=== PATIENT | female | born 1945 | race Caucasian/White ===

== ENCOUNTER 2019-06-21 10:45 | Day surgery (SDC) | payer MEDICARE, OTHER ==
[~2019-06-21 10:45] MED LIST: Lactated Ringers 1,000 ML IV ONE; Sensorcaine 0.25% 10 ML ONE
[2019-06-21] MEDS ORDERED: Lactated Ringers 1,000 ML IV ONE (11:08)
[2019-06-21] MEDS ORDERED: Lactated Ringers 1,000 ML IV SCH (11:30)
[2019-06-21] MEDS ORDERED: Levofloxacin 500MG/100ML D5W 500 MG/100 ML BAG IV SCH (13:15)
[2019-06-21] MEDS ORDERED: Quelicin Fliptop 200 MG/10 ML ONE (13:36)
[2019-06-21] MEDS ORDERED: DIPRIVAN 200 MG/20 ML IV ONE (13:36)
[2019-06-21] MEDS ORDERED: Versed 2 MG/2 ML Injection ONE (13:37)
[2019-06-21] MEDS ORDERED: SUBLIMAZE 100 MCG/2 ML ONE ×2 (13:37→14:52)
[2019-06-21] MEDS ORDERED: Zemuron 100 MG/10 ML ONE (13:53)
[2019-06-21] MEDS ORDERED: BRIDION 200MG/2ML IV ONE (14:27)
[2019-06-21] MEDS ORDERED: APRESOLINE 20 MG/ML INJ ONE (15:14)
[2019-06-21 15:59] VITALS: BP 147/74; PULSE 66; O2SAT 94
--- NOTE | 2019-06-24 10:53 | OP ---
SURGERY DATE: 06/21/19 SURGERY TIME: 1334 PREOPERATIVE DIAGNOSIS: 1. CHRONIC LEFT PERINEAL CYSTIC MASS. 2. NEW RIGHT LABIAL MASS. POSTOPERATIVE DIAGNOSIS: 1. EXCISION RIGHT LABIAL CYST 1 X 0.5 CM. 2. EXCISION LEFT PERINEAL CYSTIC MASS 5 X 2.5 X 4 CM. PROCEDURE: 1. Excision right labial mass approximately 1 X 0.5 cm. 2. Excisional debridement of chronically infected left perineal cystic mass 5 X 2.5 X 4 cm. SURGEON: Silvia Shields M.D. ANESTHESIA: General. ESTIMATED BLOOD LOSS: Approximately 25 cc. COMPLICATIONS: None. SPECIMENS: 1. Left perineal mass portion for culture and sensitivity and portion for pathology. 2. Right labial mass. PROCEDURE DETAILS: This is a 74 y/o female who presents for excision of left chronic perineal cystic mass and a new right labial lesion. She has chronically gotten small lesions in the labial and perineal area. However, her left perineal region developed a cystic mass which was removed and despite leaving this open to heal, she has a further cystic growth and chronically appearing infection here. Risks, benefits, and alternatives regarding removing this and then possibly removing the newer lesion on the right have been discussed with the patient. She understands, agrees, and wants to proceed and was able to be taken back to surgery after reviewing H&P and consent with her. She was prepped and draped in the usual sterile fashion in lithotomy after general anesthesia was done and then we did her complete time-out. We first turned our attention to the left cystic perineal lesion. This appears to be chronically inflamed, possibly infected. We made an elliptical incision and then had to slightly widen this towards the labia to complete encompass this lesion. This did track about 3.5-4 cm deep and the wound is approximately 5 X 2.5 cm. This was sharply excised with a Bovie cautery on cut and then on the coag function to encompass skin and subcutaneous tissue and all the devitalized subcutaneous tissue. I resected the entire lesion contiguously down to the bed down to healthy tissue. We then irrigated this, ensured hemostasis. I placed one 3-0 Vicryl suture at the base where she had some bleeding and with this suture this stopped and then after thorough irrigation and ensuring hemostasis, we packed this with Iodoform gauze and a sterile dressing. She does have a new lesion on her right labia. It is smaller and appears to be more sebaceous in nature and this was taken with an elliptical manner as well using the Bovie cautery sharply on cut and then coag in the subcutaneous tissue to completely resect this lesion in entirety. We then irrigated this and also packed this with Iodoform and sterile dressing. Due to the dirty nature of these wounds, we left these open to heal. The patient tolerated the procedure very well. There were no immediate complications. She is going to take some antibiotics, PO pain medications as needed, and she will have daily dressing changes. She is going to follow-up with me as an outpatient and we will discuss her final results.
== END 2019-06-21 16:18 | disposition home or self-care (01) ==
LOC: SDC 10:45
PROVIDERS: ATTEND Surgery
DX: N90.7 Vulvar cyst (principal); D36.7 Benign neoplasm of other specified sites
CPT/HCPCS: 88304; 99100; J0330; J0360; J2250; J2704; J3010

== ENCOUNTER 2019-10-08 17:36 | Emergency (ER) | payer MEDICARE, OTHER ==
[2019-10-08 19:22] LABS: Group A Strep NEGATIVE (NEGATIVE); INFLUENZA A NEGATIVE (NEGATIVE); INFLUENZA B NEGATIVE (NEGATIVE); RESPIRATORY SYNCTIAL VIRUS NEGATIVE (Negative)
--- NOTE | 2019-10-08 19:30 | ERPHSYRPT ---
- History of Present Illness Time Seen by Provider: 10/08/19 19:28 Source: patient, family Exam Limitations: no limitations Patient Subjective Stated Complaint: Pt states "I think I have the bug. My son and daughter in law have the flu and I have been coughing, my throat hurts." Triage Nursing Assessment: Pt presented alert and oriented X 3, skin pwd. Pt ambualates with an upright steady gait, able to speak in clear full sentences. Pt in no apparent respiratory distress. Physician History: Pt states "I think I have the bug. My son and daughter in law have the flu and I have been coughing, my throat hurts." Timing/Duration: yesterday Fever Severity: moderate Associated Symptoms: cough, sore throat Allergies/Adverse Reactions: clams Allergy (Verified 06/30/16 00:02) codeine [Codeine] Allergy (Verified 06/29/16 17:47) penicillin G Allergy (Verified 06/29/16 17:47) Home Medications: Allopurinol 300 mg [Zyloprim 300 mg] 300 mg PO DAILY 10/07/13 [History] Carvedilol 3.125 mg [Coreg 3.125 MG] 3.125 mg PO BID 10/07/13 [History] Nitroglycerin 0.4 mg (Ed) [Nitrostat 0.4 MG (ED)] 0.4 mg SL UD PRN [History] Potassium Chloride 2 tab PO BID 10/07/13 [History] Ergocalciferol (Vitamin D2) [Vitamin D] 50,000 unit PO UD 01/19/18 [History] Hydralazine HCl 10 mg PO TID 01/19/18 [History] Magnesium Oxide 400 mg [Mag-Ox 400] 400 mg PO DAILY 01/19/18 [History] Spironolactone 25 mg [Aldactone 25 MG] 25 mg PO DAILY 01/19/18 [History] Torsemide 20 mg [Demadex 20 mg] 2 tab PO BID 01/19/18 [History] Calcitriol [Rocaltrol] 0.5 mcg PO UD 06/21/19 [History] Hx Tetanus, Diphtheria Vaccination/Date Given: No Hx Influenza Vaccination/Date Given: Yes Hx Pneumococcal Vaccination/Date Given: No Immunizations Up to Date: Yes - Review of Systems Constitutional: Fever, Chills Eyes: No Symptoms Ears, Nose, & Throat: No Symptoms Respiratory: Cough, No Dyspnea Cardiac: No Chest Pain, No Edema, No Syncope Abdominal/Gastrointestinal: No Abdominal Pain, No Nausea, No Vomiting, No Diarrhea Genitourinary Symptoms: No Dysuria Musculoskeletal: No Back Pain, No Neck Pain Skin: No Rash Neurological: No Dizziness, No Focal Weakness, No Sensory Changes Psychological: No Symptoms Endocrine: No Symptoms All Other Systems: Reviewed and Negative - Past Medical History Pertinent Past Medical History: Yes Neurological History: No Pertinent History ENT History: Cataracts Cardiac History: Arrhythmia, Hypertension Respiratory History: No Pertinent History Endocrine Medical History: Other Musculoskeletal History: No Pertinent History GI Medical History: Diverticulitis, Hernia, Other History: Renal Disease Psycho-Social History: No Pertinent History Female Reproductive Disorders: Endometriosis Other Medical History: colon resection in 2006 - parts of colon . hyperparathyroidism. hx kidney failure stage 3 - Past Surgical History Past Surgical History: Yes Neuro Surgical History: No Pertinent History Cardiac: Cardiac Catheterization Respiratory: No Pertinent History Gastrointestinal: Appendectomy, Cholecystectomy, Colon Resection, Hernia Repair Genitourinary: No Pertinent History Musculoskeletal: No Pertinent History Female Surgical History: Hysterectomy - Social History Smoking Status: Never smoker Exposure to second hand smoke: No Drug Use: none Patient Lives Alone: No - Female History Hx Now: No - Nursing Vital Signs Nursing Vital Signs: Initial Vital Signs Temperature 99.7 F 10/08/19 18:07 Pulse Rate 77 10/08/19 18:07 Respiratory Rate 20 10/08/19 18:07 Blood Pressure 179/70 10/08/19 18:07 O2 Sat by Pulse Oximetry 98 10/08/19 18:07 Pain Scale Pain Intensity 2 - Physical Exam General Appearance: no apparent distress, alert Eye Exam: PERRL/EOMI ENT Exam: normal ENT inspection, No pharyngeal erythema, No tonsillar exudate Neck Exam: supple, full range of motion, No meningismus Respiratory Exam: normal breath sounds, lungs clear, no respiratory distress Cardiovascular/Chest Exam: normal heart sounds, regular rate/rhythm, No murmur, No edema Gastrointestinal/Abdominal Exam: soft, non tender, no distention Extremity Exam: non-tender, normal range of motion, normal inspection, normal capillary refill Neurologic Exam: alert, oriented x 3, cooperative, 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, normal mood/affect, sensation nml, No motor deficits Skin Exam: normal color, warm, dry, No rash SpO2: 96 Lab/Rad Data: Laboratory Results 10/08/19 Range/Units 18:30 Influenza Type A Ag NEGATIVE (NEGATIVE) Influenza Type B Ag NEGATIVE (NEGATIVE) RSV (PCR) NEGATIVE (Negative) Group A Strep Antibody NEGATIVE (NEGATIVE) - Progress Progress: improved Counseled pt/family regarding: lab results, diagnosis, need for follow-up - Departure Departure Disposition: Home Clinical Impression: Influenza A virus not detected, Cough Condition: Stable Critical Care Time: No Referrals: BRIGETTE HERNANDEZ [Primary Care Provider] - Instructions: Fever, Adult (DC), Flu, Adult (DC) Additional Instructions: Discharge/Care Plan JANA SUE was seen on 10/08/19 in the Emergency Room. The patient was counseled regarding Diagnosis,Lab results, Imaging studies, need for follow up and when to return to the Emergency Room. Prescriptions given: Discharge Note I have spoken with the patient and/or caregivers. I have explained the patient' s condition, diagnosis and treatment plan based on the information available to me at this time. I have answered the patient's and/or caregiver's questions and addressed any concerns. The patient and/or caregivers have as good understanding of the patient's diagnosis, condition and treatment plan as can be expected at this point. The vital signs have been stable. The patient's condition is stable and appropriate for discharge from the emergency department. The patient will pursue further outpatient evaluation with the primary care physician or other designated or consulting physician as outlined in the discharge instructions. The patient and/or caregivers are agreeable to this plan of care and follow-up instructions have been explained in detail. The patient and/or caregivers have received these instruction. The patient/and or caregivers are aware that any significant change in condition or worsening of symptoms should prompt an immediate return to this or the closest emergency department or call 911. Prescriptions: Guaifenesin/Codeine Phos [Cheratussin AC Syrup] 5 ml PO QID #150 liquid Oseltamivir 75 mg [Tamiflu 75MG Capsule] 75 mg PO BID #10 cap
[2019-10-08 19:48] VITALS: BP 184/66; PULSE 77; O2SAT 97
== END 2019-10-08 19:46 | disposition home or self-care (01) ==
LOC: ED 17:36
DX: R05 Cough (principal); Z79.899 Other long term (current) drug therapy
CPT/HCPCS: 87631; 87651; 99283

== ENCOUNTER 2020-01-05 21:48 | Observation (INO) | payer MEDICARE, OTHER ==
--- NOTE | 2020-01-05 22:01 | ERPHSYRPT ---
- History of Present Illness Time Seen by Provider: 01/05/20 22:01 Historian: patient Exam Limitations: no limitations Physician History: This is a 74-year-old obese white female who has a history of recurrent diverticulitis in the past including bowel resections for it, presents with central abdominal pain that occurred this evening. Patient denies diarrhea. She denies fever. She denies nausea and vomiting. Patient was recently diagnosed with breast cancer and has undergone PET scan. Timing/Duration: today Activities at Onset: none Quality: cramping Abdominal Pain Onset Location: periumbilical Pain Radiation: no radiation Severity of Pain-Max: mild Severity of Pain-Current: mild Modifying Factors: Improves With: nothing Associated Symptoms: No fever/chills, No nausea, No vomiting Previous symptoms: same symptoms as today Allergies/Adverse Reactions: clams Allergy (Verified 01/05/20 22:20) codeine [Codeine] Allergy (Verified 01/05/20 22:20) penicillin G Allergy (Verified 01/05/20 22:20) Home Medications: Allopurinol 300 mg [Zyloprim 300 mg] 300 mg PO DAILY 10/07/13 [History] Carvedilol 3.125 mg [Coreg 3.125 MG] 3.125 mg PO BID 10/07/13 [History] Potassium Chloride 2 tab PO BID 10/07/13 [History] Ergocalciferol (Vitamin D2) [Vitamin D] 50,000 unit PO UD 01/19/18 [History] Hydralazine HCl 10 mg PO TID 01/19/18 [History] Magnesium Oxide 400 mg [Mag-Ox 400] 400 mg PO DAILY 01/19/18 [History] Spironolactone 25 mg [Aldactone 25 MG] 25 mg PO DAILY 01/19/18 [History] Torsemide 20 mg [Demadex 20 mg] 2 tab PO BID 01/19/18 [History] Calcitriol [Rocaltrol] 0.5 mcg PO UD 06/21/19 [History] Ascorbic Acid 500 mg [Vitamin C 500 MG] 1,000 mg PO DAILY 01/05/20 [ History] Simvastatin 20 mg PO DAILY 01/05/20 [History] Zinc 50 mg PO DAILY 01/05/20 [History] Hx Tetanus, Diphtheria Vaccination/Date Given: No Hx Influenza Vaccination/Date Given: Yes Hx Pneumococcal Vaccination/Date Given: No Travel Risk - International Travel Have you traveled outside of the country in past 3 weeks: No Have you or anyone close to you been diagnosed with or: No Do your reside in a community with a known COVID-19 case?: No - Coronavirus Screening Has patient experienced Coronavirus symptoms: No - Review of Systems Constitutional: No Symptoms Eyes: No Symptoms Ears, Nose, & Throat: No Symptoms Respiratory: No Symptoms Cardiac: No Symptoms Abdominal/Gastrointestinal: Abdominal Pain, No Vomiting, No Diarrhea, No Constipation Genitourinary Symptoms: No Symptoms Musculoskeletal: No Symptoms Skin: No Symptoms Neurological: No Symptoms Psychological: No Symptoms Endocrine: No Symptoms Hematologic/Lymphatic: No Symptoms Immunological/Allergic: No Symptoms All Other Systems: Reviewed and Negative - Past Medical History Pertinent Past Medical History: Yes Neurological History: No Pertinent History ENT History: Cataracts Cardiac History: Arrhythmia, Hypertension Respiratory History: No Pertinent History Endocrine Medical History: Other Musculoskeletal History: No Pertinent History GI Medical History: Diverticulitis, Hernia, Other History: Renal Disease Psycho-Social History: No Pertinent History Female Reproductive Disorders: Endometriosis Other Medical History: colon resection in 2006 - parts of colon . hyperparathyroidism. hx kidney failure stage 3 - Past Surgical History Past Surgical History: Yes Neuro Surgical History: No Pertinent History Cardiac: Cardiac Catheterization Respiratory: No Pertinent History Gastrointestinal: Appendectomy, Cholecystectomy, Colon Resection, Hernia Repair Genitourinary: No Pertinent History Musculoskeletal: No Pertinent History Female Surgical History: Hysterectomy - Social History Smoking Status: Never smoker Exposure to second hand smoke: No Drug Use: none Patient Lives Alone: No - Nursing Vital Signs Nursing Vital Signs: Initial Vital Signs Temperature 98.5 F 01/05/20 21:54 Pulse Rate 61 01/05/20 21:54 Respiratory Rate 24 01/05/20 21:54 Blood Pressure 151/70 01/05/20 21:54 Pain Scale Pain Intensity 8 - Physical Exam General Appearance: no apparent distress, alert, anxiety Eye Exam: PERRL/EOMI, eyes nml inspection, EOM palsy/anisocoria Ears, Nose, Throat Exam: moist mucous membranes Neck Exam: normal inspection, non-tender, supple, full range of motion Respiratory Exam: normal breath sounds, lungs clear, airway intact, No chest tenderness, No respiratory distress Cardiovascular Exam: regular rate/rhythm, normal heart sounds, normal peripheral pulses Gastrointestinal/Abdomen Exam: soft, normal bowel sounds, tenderness (Mild periumbilical), guarding (Mild), No rebound Pelvic Exam: not done Rectal Exam: not done Back Exam: normal inspection, normal range of motion, No CVA tenderness, No vertebral tenderness Extremity Exam: normal inspection, normal range of motion, pelvis stable Neurologic Exam: alert, oriented x 3, cooperative, 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 Skin Exam: normal color, warm, dry Lymphatic Exam: No adenopathy SpO2 Interpretation: normal O2 Delivery: Room Air - Course Nursing assessment & vital signs reviewed: Yes Ordered Tests: Active Orders 24 hr Category Date Time Status IV Insertion STAT Care 01/05/20 22:17 Active ABDOMEN AND PELVIS W/0 CONTRAS [CT] Stat Exams 01/05/20 22:12 Taken AMYLASE Stat Lab 01/05/20 22:30 Completed CBC W DIFF Stat Lab 01/05/20 22:30 Completed CMP Stat Lab 01/05/20 22:30 Completed CULTURE,URINE Stat Lab 01/05/20 22:30 Received LIPASE Stat Lab 01/05/20 22:30 Completed Lactic Acid Stat Lab 01/05/20 22:30 Completed UA W/RFX UR CULTURE Stat Lab 01/05/20 22:30 Completed Transfer Order Routine Transfer 01/05/20 Ordered Medication Summary Generic Name Dose Route Start Last Admin Trade Name Freq PRN Reason Stop Dose Admin Levofloxacin/Dextrose 500 mg in 100 mls @ 100 mls/hr 01/05/20 23:00 01/05/20 23:11 Levofloxacin 500mg/100ml D5w IV 01/05/20 23:59 100 mls/hr STAT STA 100 mls/hr Administration Discontinued Medications Generic Name Dose Route Start Last Admin Trade Name Freq PRN Reason Stop Dose Admin Hydromorphone HCl 0.5 mg 01/05/20 22:27 01/05/20 22:29 Hydromorphone 1 Mg/Ml Ampule IV 01/05/20 22:28 0.5 mg STAT ONE Administration Hydromorphone HCl Confirm 01/05/20 22:28 Hydromorphone 1 Mg/Ml Ampule Administered 01/05/20 22:29 Dose 1 mg .ROUTE .STK-MED ONE Sodium Chloride 1,000 mls @ 999 mls/hr 01/05/20 22:13 01/05/20 23:36 Sodium Chloride 0.9% 1000 Ml IV 01/05/20 23:13 Infused .Q1H1M STA Infusion Sodium Chloride Confirm 01/05/20 22:18 Sodium Chloride 0.9% 1000 Ml Administered 01/05/20 22:19 Dose 1,000 mls @ ud .ROUTE .STK-MED ONE Levofloxacin/Dextrose Confirm 01/05/20 23:09 Levofloxacin 500mg/100ml D5w Administered 01/05/20 23:10 Dose 500 mg in 100 mls @ ud IV .STK-MED ONE Ondansetron HCl 4 mg 01/05/20 22:27 01/05/20 22:29 Zofran 4 Mg/2 Ml Vial IV 01/05/20 22:28 4 mg STAT ONE Administration Ondansetron HCl Confirm 01/05/20 22:28 Zofran 4 Mg/2 Ml Vial Administered 01/05/20 22:29 Dose 4 mg .ROUTE .STK-MED ONE Promethazine HCl 12.5 mg 01/05/20 23:01 01/05/20 23:11 Phenergan 25 Mg Inj IM 01/05/20 23:02 12.5 mg STAT ONE Administration Promethazine HCl Confirm 01/05/20 23:09 Phenergan 25 Mg Inj Administered 01/05/20 23:10 Dose 25 mg .ROUTE .STK-MED ONE Lab/Rad Data: Laboratory Result Diagrams 01/05/20 22:30 01/05/20 22:30 Laboratory Results 01/05/20 01/05/20 01/05/20 Range/Units 22:30 22:30 22:30 WBC (4.0-10.5) K/mm3 RBC (4.1-5.4) M/mm3 Hgb (12.0-16.0) gm/dl Hct (35-47) % MCV (78-100) fl MCH (26-32) pg MCHC (32-36) g/dl RDW (11.5-14.0) % Plt Count (150-450) K/mm3 MPV (7.5-11.0) fl Gran % (36.0-66.0) % Eos # (Auto) (0-0.5) Absolute Lymphs (auto) (1.0-4.6) Absolute Monos (auto) (0.0-1.3) Lymphocytes % (24.0-44.0) % Monocytes % (0.0-12.0) % Eosinophils % (0.00-5.0) % Basophils % (0.0-0.4) % Absolute Granulocytes (1.4-6.9) Basophils # (0-0.4) Sodium 140 (137-145) mmol/L Potassium 4.4 (3.5-5.1) mmol/L Chloride 102 (98-107) mmol/L Carbon Dioxide 29 (22-30) mmol/L Anion Gap 14.0 (5-15) MEQ/L BUN 35 H (7-17) mg/dL Creatinine 1.68 H (0.52-1.04) mg/dL Estimated GFR 31.8 ML/MIN Glucose 129 H (74-106) mg/dL Lactic Acid 2.0 (0.4-2.0) Calcium 9.9 (8.4-10.2) mg/dL Total Bilirubin 0.70 (0.2-1.3) mg/dL AST 34 (14-36) U/L ALT 18 (0-35) U/L Alkaline Phosphatase 124 (38-126) U/L Serum Total Protein 7.9 (6.3-8.2) g/dL Albumin 4.4 (3.5-5.0) g/dL Amylase 95 (30-110) U/L Lipase 288 (23-300) U/L Urine Color YELLOW (YELLOW) Urine Appearance CLEAR (CLEAR) Urine pH 6.0 (5-6) Ur Specific [place] 1.010 (1.005-1.025) Urine Protein NEGATIVE (Negative) Urine Ketones NEGATIVE (NEGATIVE) Urine Blood NEGATIVE (0-5) Alok/ul Urine Nitrite NEGATIVE (NEGATIVE) Urine Bilirubin NEGATIVE (NEGATIVE) Urine Urobilinogen NEGATIVE (0-1) mg/dL Ur Leukocyte Esterase MODERATE (NEGATIVE) Urine WBC (Auto) 26-50 (0-5) /HPF Urine RBC (Auto) 0-2 (0-2) /HPF U Hyaline Cast (Auto) 6-10 (0-2) /LPF U Epithel Cells (Auto) NONE (FEW) /HPF Urine Bacteria (Auto) RARE (NEGATIVE) /HPF Other Casts (Auto) NEGATIVE (NEGATIVE) /LPF Urine Culture Reflexed YES (NO) Urine Glucose NEGATIVE (NEGATIVE) mg/dL 01/05/20 Range/Units 22:30 WBC 9.1 (4.0-10.5) K/mm3 RBC 3.88 L (4.1-5.4) M/mm3 Hgb 12.8 (12.0-16.0) gm/dl Hct 39.7 (35-47) % MCV 102.3 H (78-100) fl MCH 33.0 H (26-32) pg MCHC 32.2 (32-36) g/dl RDW 14.4 H (11.5-14.0) % Plt Count 139 L (150-450) K/mm3 MPV 10.7 (7.5-11.0) fl Gran % 77.3 H (36.0-66.0) % Eos # (Auto) 0.10 (0-0.5) Absolute Lymphs (auto) 1.10 (1.0-4.6) Absolute Monos (auto) 0.79 (0.0-1.3) Lymphocytes % 12.2 L (24.0-44.0) % Monocytes % 8.7 (0.0-12.0) % Eosinophils % 1.1 (0.00-5.0) % Basophils % 0.7 (0.0-0.4) % Absolute Granulocytes 7.00 H (1.4-6.9) Basophils # 0.06 (0-0.4) Sodium (137-145) mmol/L Potassium (3.5-5.1) mmol/L Chloride (98-107) mmol/L Carbon Dioxide (22-30) mmol/L Anion Gap (5-15) MEQ/L BUN (7-17) mg/dL Creatinine (0.52-1.04) mg/dL Estimated GFR ML/MIN Glucose (74-106) mg/dL Lactic Acid (0.4-2.0) Calcium (8.4-10.2) mg/dL Total Bilirubin (0.2-1.3) mg/dL AST (14-36) U/L ALT (0-35) U/L Alkaline Phosphatase (38-126) U/L Serum Total Protein (6.3-8.2) g/dL Albumin (3.5-5.0) g/dL Amylase (30-110) U/L Lipase (23-300) U/L Urine Color (YELLOW) Urine Appearance (CLEAR) Urine pH (5-6) Ur Specific [place] (1.005-1.025) Urine Protein (Negative) Urine Ketones (NEGATIVE) Urine Blood (0-5) Alok/ul Urine Nitrite (NEGATIVE) Urine Bilirubin (NEGATIVE) Urine Urobilinogen (0-1) mg/dL Ur Leukocyte Esterase (NEGATIVE) Urine WBC (Auto) (0-5) /HPF Urine RBC (Auto) (0-2) /HPF U Hyaline Cast (Auto) (0-2) /LPF U Epithel Cells (Auto) (FEW) /HPF Urine Bacteria (Auto) (NEGATIVE) /HPF Other Casts (Auto) (NEGATIVE) /LPF Urine Culture Reflexed (NO) Urine Glucose (NEGATIVE) mg/dL - Progress Progress: improved, pain not gone completely, re-examined Progress Note: 01/05/20 23:46 CAT scan of the abdomen and pelvis reveals small bowel obstruction. There is diverticulosis without evidence of diverticulitis. 01/05/20 23:[address] Teja Eason and I reviewed the patient's history, condition, laboratory and CAT scan results with him. He agrees with placement in observation with IV antibiotics, IV fluids and antiemetics. Discussed with : Donna Counseled pt/family regarding: lab results, diagnosis, rad results - Departure Departure Disposition: Home Clinical Impression: Small bowel obstruction, UTI (urinary tract infection) Condition: Stable Critical Care Time: No Referrals: BRIGETTE HERNANDEZ [Primary Care Provider] -
[2020-01-05] MEDS ORDERED: Sodium Chloride 0.9% 1000 ML 1,000 ML IV STA (22:13)
[2020-01-05] MEDS ORDERED: Sodium Chloride 0.9% 1000 ML 1,000 ML ONE (22:18)
[2020-01-05] MEDS ORDERED: Hydromorphone 1 mg/ml Ampule IV ONE (22:27)
[2020-01-05] MEDS ORDERED: Zofran 4 MG/2 ML VIAL IV ONE (22:27)
[2020-01-05] MEDS ORDERED: Hydromorphone 1 mg/ml Ampule ONE (22:28)
[2020-01-05] MEDS ORDERED: Zofran 4 MG/2 ML VIAL ONE (22:28)
[2020-01-05 22:33] LABS: BASOPHIL % 0.7 % (0.0-0.4); Basophil (Absolute #) 0.06 (0-0.4); Eosinophil % 1.1 % (0.00-5.0); Hematocrit 39.7 % (35-47); Hemoglobin 12.8 gm/dl (12.0-16.0); Lymphocytes % 12.2 % (24.0-44.0); Mean Cell Volume 102.3 fl (78-100); Mean Corpuscular Hgb Concent. 32.2 g/dl (32-36); Mean Platelet Volume 10.7 fl (7.5-11.0); Monocyte (Absolute #) 0.79 (0.0-1.3); Monocytes % 8.7 % (0.0-12.0); Neutrophil % 77.3 % (36.0-66.0); Platelet Count 139 K/mm3 (150-450); Red Blood Count 3.88 M/mm3 (4.1-5.4); Red Cell Distribution Width 14.4 % (11.5-14.0); White Blood Count 9.1 K/mm3 (4.0-10.5)
[2020-01-05 22:38] LABS: Appearance CLEAR (CLEAR); Bacteria RARE /HPF (NEGATIVE); Bilirubin NEGATIVE (NEGATIVE); Blood NEGATIVE Ery/ul (0-5); Glucose NEGATIVE (NEGATIVE); Ketones NEGATIVE (NEGATIVE); Leukocyte Esterase MODERATE (NEGATIVE); Nitrite NEGATIVE (NEGATIVE); Protein,Urine Dip NEGATIVE (Negative); RBC 0-2 /HPF (0-2); Urobilinogen NEGATIVE mg/dL (0-1); WBC 26-50 /HPF (0-5)
[2020-01-05 22:45] LABS: ALBUMIN 4.4 g/dL (3.5-5.0); BILIRUBIN,TOTAL 0.7 mg/dL (0.2-1.3); Calcium 9.9 mg/dL (8.4-10.2); Creatinine 1 1.68 mg/dL (0.52-1.04); Potassium 4.4 mmol/L (3.5-5.1); Total Protein 7.9 g/dL (6.3-8.2)
[2020-01-05] MEDS ORDERED: Levofloxacin 500MG/100ML D5W 500 MG/100 ML BAG IV STA (23:00)
[2020-01-05] MEDS ORDERED: Phenergan 25 MG INJ IM ONE (23:01)
[2020-01-05] MEDS ORDERED: Phenergan 25 MG INJ ONE (23:09)
[2020-01-05] MEDS ORDERED: Levofloxacin 500MG/100ML D5W 500 MG/100 ML BAG IV ONE (23:09)
[2020-01-06] MEDS ORDERED: Phenergan 25 MG INJ IM PRN (00:12)
[2020-01-06] MEDS ORDERED: FEVERALL 650 MG PR PRN (00:12)
[2020-01-06] MEDS ORDERED: DILAUDID 2 MG INJECTION IV PRN (00:20)
[2020-01-06] MEDS: FLAGYL 500 MG IVPB 500 MG/100 ML BAG IV SCH ×5 (00:28→23:39)
[2020-01-06] MEDS: Sodium Chloride 0.9% 1000 ML 1,000 ML IV SCH ×3 (00:29→21:35)
[2020-01-06 04:54] LABS: Hematocrit 39.6 % (35-47); Hemoglobin 12.5 gm/dl (12.0-16.0); Mean Cell Volume 104.2 fl (78-100); Mean Corpuscular Hemoglobin 32.9 pg (26-32); Mean Corpuscular Hgb Concent. 31.6 g/dl (32-36); Mean Platelet Volume 10.3 fl (7.5-11.0); Platelet Count 107 K/mm3 (150-450); Red Cell Distribution Width 14.5 % (11.5-14.0); White Blood Count 6.5 K/mm3 (4.0-10.5)
[2020-01-06 05:18] LABS: ANION GAP 13.5 MEQ/L (5-15); Calcium 9.3 mg/dL (8.4-10.2); Creatinine 1 1.4 mg/dL (0.52-1.04); PREALBUMIN 20.84 mg/dL (17.6-36.0); Potassium 4.7 mmol/L (3.5-5.1)
--- NOTE | 2020-01-06 08:34 | XRAY ---
Indication: Lower abdomen pain. History diverticulitis. Multiple contiguous axial images obtained through the abdomen and pelvis without contrast as ordered. Comparison: June 29, 2016. Lung bases again demonstrates bibasilar atelectasis/scarring without infiltrate or effusion. Heart is borderline enlarged. Stomach and mid small bowel loops are mildly fluid distended. Distended small bowel loops up to 4 cm in diameter with fluid leveling. No abnormal bowel wall thickening. More distal small and large bowel loops are unremarkable. Findings may represent partial small bowel obstruction versus ileus. Intact sigmoid anastomosis. Reported appendectomy, cholecystectomy, and hysterectomy. Interval ventral hernia repair with intact mesh graft. No free fluid/air. Liver demonstrates micronodular margins as seen in cirrhosis. No splenomegaly. Remaining liver, pancreas, spleen, general glands, kidneys, ureters, and bladder appear unremarkable for noncontrast exam. Minimal aortoiliac calcifications without AAA. Osseous structures intact again with mild degenerative changes throughout the thoracolumbar spine. Impression: 1. Mild fluid distended stomach and mid small bowel loops with fluid leveling. Rule out partial small bowel obstruction versus ileus. 2. Suspect cirrhosis without ascites, borderline cardiomegaly, postsurgical changes, and mild degenerative spondylosis. 3. Remaining CT abdomen/pelvis without contrast exam is negative. Comment: Preliminary interpretation was made by C. No critical discrepancy.
--- NOTE | 2020-01-06 08:35 | PCM.HP ---
History of Present Illness - Chief Complaint Chief Complaint: SBO History of Present Illness: is a 74 year old female pt of mine from [facility] with breast cancer ( recently diagnosed), hx diverticulitis (with hx sigmoid resection), CHF, HTN, neuropathy, and chronic renal failure who was admitted through ER with small bowel obstruction and UTI. Pt started having mid-abdominal pain (periumbilical , and mid right- and left-sided abd pain) last night about 5 pm, waxed and waned , up to "20"/10. It worsened and she came to ER. Vomited x 2. Last BM was yesterday. In ER, her WBC were nl at 9.1, eGFR 31.8. CT showed small bowel bostruction, diverticulosis not diverticulitis. Overnight she has been afebrile with no vomiting. She last had pain medicine at 4-5 in the morning and is currently pain free. Denies nausea. - Review of Systems Constitutional: No Fever Abdominal/Gastrointestinal: Abdominal Pain, Vomiting, Appetite Changes All Other Systems: Reviewed and Negative Medications & Allergies Home Medications: Home Medication List Allopurinol 300 mg [Zyloprim 300 mg] 300 mg PO DAILY 10/07/13 [History Confirmed 01/05/20] Carvedilol 3.125 mg [Coreg 3.125 MG] 3.125 mg PO BID 10/07/13 [History Confirmed 01/05/20] Potassium Chloride 2 tab PO BID 10/07/13 [History Confirmed 01/05/20] Ergocalciferol (Vitamin D2) [Vitamin D] 50,000 unit PO UD 01/19/18 [History Confirmed 01/05/20] Hydralazine HCl 10 mg PO TID 01/19/18 [History Confirmed 01/05/20] Magnesium Oxide 400 mg [Mag-Ox 400] 400 mg PO DAILY 01/19/18 [History Confirmed 01/05/20] Spironolactone 25 mg [Aldactone 25 MG] 25 mg PO DAILY 01/19/18 [History Confirmed 01/05/20] Torsemide 20 mg [Demadex 20 mg] 2 tab PO BID 01/19/18 [History Confirmed 01/05/20] Calcitriol [Rocaltrol] 0.5 mcg PO UD 06/21/19 [History Confirmed 01/05/20] Ascorbic Acid 500 mg [Vitamin C 500 MG] 1,000 mg PO DAILY 01/05/20 [ History Confirmed 01/05/20] Simvastatin 20 mg PO DAILY 01/05/20 [History Confirmed 01/05/20] Zinc 50 mg PO DAILY 01/05/20 [History Confirmed 01/05/20] Allergies/Adverse Reactions: Allergies Allergy/AdvReac Type Severity Reaction Status Date / Time clams Allergy Severe breathing Verified 01/06/20 03:58 difficulty codeine [Codeine] Allergy Intermediate Hives Verified 01/06/20 03:58 penicillin G Allergy Intermediate Hives Verified 01/06/20 03:58 - Past Medical History Past Medical History: Yes Neurological History: No Pertinent History ENT History: Cataracts Cardiac History: Arrhythmia, Hypertension Respiratory History: No Pertinent History Endocrine Medical History: Other Musculoskelatal History: No Pertinent History GI Medical History: Diverticulitis, Hernia, Other History: Renal Disease Pyscho-Social History: No Pertinent History Reproductive Disorders: Breast Cancer, Endometriosis Comment: colon resection in 2006 - parts of colon . hyperparathyroidism. hx kidney failure stage 3. Patient reported this still accurate - Female History Are you now?: No - Past Surgical History Past Surgical History: Yes Neuro Surgical History: No Pertinent History Cardiac History: Cardiac Catheterization Respiratory Surgery: No Pertinent History GI Surgical History: Appendectomy, Cholecystectomy, Colon Resection, Hernia Repair Genitourinary Surgical Hx: No Pertinent History Musculskeletal Surgical Hx: No Pertinent History Female Surgical History: Hysterectomy - Social History Smoking Status: Never smoker Exposure to second hand smoke: No Alcohol: None Drug Use: none - Physical Exam Vital Signs: Vital Signs - 24 hr Temp Pulse Resp BP Pulse Ox 01/06/20 08:00 97.8 F 60 19 122/56 93 L 01/06/20 04:00 97.8 F 62 18 132/60 92 L 01/06/20 00:48 97.2 F 62 18 179/78 94 L 01/05/20 23:55 65 145/72 93 L 01/05/20 23:18 62 158/71 95 01/05/20 21:54 98.5 F 61 24 151/70 General Appearance: no apparent distress, obese Neurologic Exam: alert, oriented x 3, cooperative Eye Exam: eyes nml inspection Ears, Nose, Throat Exam: moist mucous membranes Neck Exam: normal inspection Respiratory Exam: normal breath sounds, lungs clear, No crackles/rales, No rhonchi, No wheezing Cardiovascular Exam: regular rate/rhythm, normal heart sounds, murmur (II/ sys murmur) Gastrointestinal/Abdomen Exam: soft, tenderness (diffuse, mild), No normal bowel sounds (hypoactive but present), No distention, No mass, No guarding, No rebound Back Exam: normal inspection, No CVA tenderness, No rash Extremity Exam: normal inspection, swelling (trace pretibial edema bilat) Skin Exam: normal color, warm, dry, No rash Results - Labs Lab/Micro Results: Lab Results-Last 24 Hours 01/05/20 01/05/20 01/05/20 Range/Units 22:30 22:30 22:30 WBC 9.1 (4.0-10.5) K/mm3 RBC 3.88 L (4.1-5.4) M/mm3 Hgb 12.8 (12.0-16.0) gm/dl Hct 39.7 (35-47) % MCV 102.3 H (78-100) fl MCH 33.0 H (26-32) pg MCHC 32.2 (32-36) g/dl RDW 14.4 H (11.5-14.0) % Plt Count 139 L (150-450) K/mm3 MPV 10.7 (7.5-11.0) fl Gran % 77.3 H (36.0-66.0) % Eos # (Auto) 0.10 (0-0.5) Absolute Lymphs (auto) 1.10 (1.0-4.6) Absolute Monos (auto) 0.79 (0.0-1.3) Lymphocytes % 12.2 L (24.0-44.0) % Monocytes % 8.7 (0.0-12.0) % Eosinophils % 1.1 (0.00-5.0) % Basophils % 0.7 (0.0-0.4) % Absolute Granulocytes 7.00 H (1.4-6.9) Basophils # 0.06 (0-0.4) Sodium 140 (137-145) mmol/L Potassium 4.4 (3.5-5.1) mmol/L Chloride 102 (98-107) mmol/L Carbon Dioxide 29 (22-30) mmol/L Anion Gap 14.0 (5-15) MEQ/L BUN 35 H (7-17) mg/dL Creatinine 1.68 H (0.52-1.04) mg/dL Estimated GFR 31.8 ML/MIN Glucose 129 H (74-106) mg/dL Lactic Acid 2.0 (0.4-2.0) Calcium 9.9 (8.4-10.2) mg/dL Total Bilirubin 0.70 (0.2-1.3) mg/dL AST 34 (14-36) U/L ALT 18 (0-35) U/L Alkaline Phosphatase 124 (38-126) U/L Serum Total Protein 7.9 (6.3-8.2) g/dL Albumin 4.4 (3.5-5.0) g/dL Prealbumin (17.6-36.0) mg/dL Amylase 95 (30-110) U/L Lipase 288 (23-300) U/L Urine Color (YELLOW) Urine Appearance (CLEAR) Urine pH (5-6) Ur Specific [place] (1.005-1.025) Urine Protein (Negative) Urine Ketones (NEGATIVE) Urine Blood (0-5) Alok/ul Urine Nitrite (NEGATIVE) Urine Bilirubin (NEGATIVE) Urine Urobilinogen (0-1) mg/dL Ur Leukocyte Esterase (NEGATIVE) Urine WBC (Auto) (0-5) /HPF Urine RBC (Auto) (0-2) /HPF U Hyaline Cast (Auto) (0-2) /LPF U Epithel Cells (Auto) (FEW) /HPF Urine Bacteria (Auto) (NEGATIVE) /HPF Other Casts (Auto) (NEGATIVE) /LPF Urine Culture Reflexed (NO) Urine Glucose (NEGATIVE) mg/dL 01/05/20 01/06/20 01/06/20 Range/Units 22:30 00:35 04:22 WBC 6.5 (4.0-10.5) K/mm3 RBC 3.80 L (4.1-5.4) M/mm3 Hgb 12.5 (12.0-16.0) gm/dl Hct 39.6 (35-47) % MCV 104.2 H (78-100) fl MCH 32.9 H (26-32) pg MCHC 31.6 L (32-36) g/dl RDW 14.5 H (11.5-14.0) % Plt Count 107 L (150-450) K/mm3 MPV 10.3 (7.5-11.0) fl Gran % (36.0-66.0) % Eos # (Auto) (0-0.5) Absolute Lymphs (auto) (1.0-4.6) Absolute Monos (auto) (0.0-1.3) Lymphocytes % (24.0-44.0) % Monocytes % (0.0-12.0) % Eosinophils % (0.00-5.0) % Basophils % (0.0-0.4) % Absolute Granulocytes (1.4-6.9) Basophils # (0-0.4) Sodium (137-145) mmol/L Potassium (3.5-5.1) mmol/L Chloride (98-107) mmol/L Carbon Dioxide (22-30) mmol/L Anion Gap (5-15) MEQ/L BUN (7-17) mg/dL Creatinine (0.52-1.04) mg/dL Estimated GFR ML/MIN Glucose (74-106) mg/dL Lactic Acid 1.3 (0.4-2.0) Calcium (8.4-10.2) mg/dL Total Bilirubin (0.2-1.3) mg/dL AST (14-36) U/L ALT (0-35) U/L Alkaline Phosphatase (38-126) U/L Serum Total Protein (6.3-8.2) g/dL Albumin (3.5-5.0) g/dL Prealbumin (17.6-36.0) mg/dL Amylase (30-110) U/L Lipase (23-300) U/L Urine Color YELLOW (YELLOW) Urine Appearance CLEAR (CLEAR) Urine pH 6.0 (5-6) Ur Specific [place] 1.010 (1.005-1.025) Urine Protein NEGATIVE (Negative) Urine Ketones NEGATIVE (NEGATIVE) Urine Blood NEGATIVE (0-5) Alok/ul Urine Nitrite NEGATIVE (NEGATIVE) Urine Bilirubin NEGATIVE (NEGATIVE) Urine Urobilinogen NEGATIVE (0-1) mg/dL Ur Leukocyte Esterase MODERATE (NEGATIVE) Urine WBC (Auto) 26-50 (0-5) /HPF Urine RBC (Auto) 0-2 (0-2) /HPF U Hyaline Cast (Auto) 6-10 (0-2) /LPF U Epithel Cells (Auto) NONE (FEW) /HPF Urine Bacteria (Auto) RARE (NEGATIVE) /HPF Other Casts (Auto) NEGATIVE (NEGATIVE) /LPF Urine Culture Reflexed YES (NO) Urine Glucose NEGATIVE (NEGATIVE) mg/dL 01/06/20 Range/Units 04:22 WBC (4.0-10.5) K/mm3 RBC (4.1-5.4) M/mm3 Hgb (12.0-16.0) gm/dl Hct (35-47) % MCV (78-100) fl MCH (26-32) pg MCHC (32-36) g/dl RDW (11.5-14.0) % Plt Count (150-450) K/mm3 MPV (7.5-11.0) fl Gran % (36.0-66.0) % Eos # (Auto) (0-0.5) Absolute Lymphs (auto) (1.0-4.6) Absolute Monos (auto) (0.0-1.3) Lymphocytes % (24.0-44.0) % Monocytes % (0.0-12.0) % Eosinophils % (0.00-5.0) % Basophils % (0.0-0.4) % Absolute Granulocytes (1.4-6.9) Basophils # (0-0.4) Sodium 139 (137-145) mmol/L Potassium 4.7 (3.5-5.1) mmol/L Chloride 105 (98-107) mmol/L Carbon Dioxide 26 (22-30) mmol/L Anion Gap 13.5 (5-15) MEQ/L BUN 34 H (7-17) mg/dL Creatinine 1.40 H (0.52-1.04) mg/dL Estimated GFR 39.3 ML/MIN Glucose 146 H (74-106) mg/dL Lactic Acid (0.4-2.0) Calcium 9.3 (8.4-10.2) mg/dL Total Bilirubin (0.2-1.3) mg/dL AST (14-36) U/L ALT (0-35) U/L Alkaline Phosphatase (38-126) U/L Serum Total Protein (6.3-8.2) g/dL Albumin (3.5-5.0) g/dL Prealbumin 20.84 (17.6-36.0) mg/dL Amylase (30-110) U/L Lipase (23-300) U/L Urine Color (YELLOW) Urine Appearance (CLEAR) Urine pH (5-6) Ur Specific [place] (1.005-1.025) Urine Protein (Negative) Urine Ketones (NEGATIVE) Urine Blood (0-5) Alok/ul Urine Nitrite (NEGATIVE) Urine Bilirubin (NEGATIVE) Urine Urobilinogen (0-1) mg/dL Ur Leukocyte Esterase (NEGATIVE) Urine WBC (Auto) (0-5) /HPF Urine RBC (Auto) (0-2) /HPF U Hyaline Cast (Auto) (0-2) /LPF U Epithel Cells (Auto) (FEW) /HPF Urine Bacteria (Auto) (NEGATIVE) /HPF Other Casts (Auto) (NEGATIVE) /LPF Urine Culture Reflexed (NO) Urine Glucose (NEGATIVE) mg/dL - Radiology Impressions Radiology Exams & Impressions: Radiology Procedures Category Date Time Status ABDOMEN AND PELVIS W/0 CONTRAS [CT] Stat Exams 01/05/20 22:12 Taken Assessment/Plan (1) Small bowel obstruction Current Visit: Yes Status: Acute Assessment & Plan: She is no longer vomiting and is not nauseated. Will try CLD as jhoana; if vomiting, return to NPO and consider NG tube. On IV levaquin and flagyl currently. Code(s): K56.609 - UNSP INTESTNL OBST, UNSP TO PARTIAL VERSUS COMPLETE OBST (2) UTI (urinary tract infection) Current Visit: Yes Status: Acute Qualifiers: Urinary tract infection type: acute cystitis Hematuria presence: without hematuria Qualified Code(s): N30.00 - Acute cystitis without hematuria Assessment & Plan: On IV levaquin; await culture results. Code(s): N39.0 - URINARY TRACT INFECTION, SITE NOT SPECIFIED (3) Essential hypertension Current Visit: No Status: Acute Assessment & Plan: will add hydralazine for prn coverage. Code(s): I10 - ESSENTIAL (PRIMARY) HYPERTENSION (4) Chronic renal disease Current Visit: Yes Status: Chronic Qualifiers: Chronic kidney disease stage: stage 3 (moderate) Qualified Code(s): N18.3 - Chronic kidney disease, stage 3 (moderate) Assessment & Plan: she is back to baseline with renal function Code(s): N18.9 - CHRONIC KIDNEY DISEASE, UNSPECIFIED (5) Morbid obesity Current Visit: No Status: Chronic Code(s): E66.01 - MORBID (SEVERE) OBESITY DUE TO EXCESS CALORIES
[2020-01-06] MEDS ORDERED: APRESOLINE 20 MG/ML INJ IV PRN (08:57)
[2020-01-06] MEDS ORDERED: Levofloxacin 500MG/100ML D5W 500 MG/100 ML BAG IV SCH (10:00)
[2020-01-06] MEDS: Acidophilus TABLET PO SCH ×3 (11:27→21:40)
[2020-01-06] MEDS: ZYLOPRIM 300 MG PO SCH (11:27)
[2020-01-06] MEDS: Coreg 3.125 MG PO SCH ×3 (11:28→21:47)
[2020-01-06] MEDS: ZOCOR 20MG PO SCH (11:28)
[2020-01-06] MEDS ORDERED: Ativan 0.5 MG PO PRN (21:36)
[2020-01-06] MEDS ORDERED: BENADRYL 25 MG CAPSULE PO PRN (21:43)
[2020-01-06] MEDS ORDERED: Levaquin 250MG/50ML D5W 250 MG/50 ML BAG IV SCH (22:00)
[2020-01-06] MEDS ORDERED: TYLENOL EXTRA STRENGTH 500 MG PO PRN (22:00)
[2020-01-07 05:01] LABS: Hematocrit 34.6 % (35-47); Hemoglobin 10.5 gm/dl (12.0-16.0); Mean Cell Volume 106.1 fl (78-100); Mean Corpuscular Hemoglobin 32.2 pg (26-32); Mean Corpuscular Hgb Concent. 30.3 g/dl (32-36); Mean Platelet Volume 10.5 fl (7.5-11.0); Platelet Count 115 K/mm3 (150-450); Red Blood Count 3.26 M/mm3 (4.1-5.4); Red Cell Distribution Width 14.4 % (11.5-14.0); White Blood Count 4.3 K/mm3 (4.0-10.5)
[2020-01-07 05:22] LABS: ALBUMIN 3.2 g/dL (3.5-5.0); BILIRUBIN,TOTAL 0.7 mg/dL (0.2-1.3); Calcium 8.5 mg/dL (8.4-10.2); Creatinine 1 1.28 mg/dL (0.52-1.04); Potassium 4.3 mmol/L (3.5-5.1); Total Protein 5.9 g/dL (6.3-8.2)
[2020-01-07] MEDS: FLAGYL 500 MG IVPB 500 MG/100 ML BAG IV SCH ×2 (06:01→11:00)
[2020-01-07] MEDS ORDERED: TYLENOL EXTRA STRENGTH 500 MG PO PRN (06:57)
--- NOTE | 2020-01-07 08:35 | PCM.NOTE ---
Date and Time: 01/07/20 08 Subjective Assessment: Pt had a large liquid BM yesterday. This morning she is feeling "like a run- over rodent." She has been tolerating po without nausea and vomiting. - Review of Systems Constitutional: No Fever Abdominal/Gastrointestinal: No Vomiting Objective Exam General Appearance: no apparent distress, alert, obese Neurologic Exam: oriented x 3, cooperative Skin Exam: normal color, warm, dry, No rash Eye Exam: eyes nml inspection Ears, Nose, Throat Exam: moist mucous membranes Respiratory Exam: normal breath sounds, lungs clear, No crackles/rales, No rhonchi, No wheezing Cardiovascular Exam: regular rate/rhythm, normal heart sounds, No murmur Gastrointestinal/Abdomen Exam: soft, normal bowel sounds, tenderness (epigastrum ), No distention, No mass, No guarding, No rebound Extremity Exam: swelling (trace pretibial edema bilat), other (chronic changes in lower leg bilat) Back Exam: normal inspection, No rash OBJECTIVE DATA Vital Signs: Vital Signs - 24 hr Temp Pulse Resp BP Pulse Ox 01/07/20 08:00 98.2 F 53 L 20 126/58 93 L 01/07/20 03:40 98.2 F 59 L 18 110/51 93 L 01/06/20 23:32 98.6 F 66 17 103/51 92 L 01/06/20 20:00 98.0 F 56 L 19 111/53 97 01/06/20 16:00 97.8 F 58 L 17 119/55 93 L 01/06/20 11:56 98.4 F 54 L 18 130/58 94 L Pain Assessment - Last Documented Pain Intensity 0 Pain Scale Used 0-10 Pain Scale Intake and Output: Intake & Output 01/04/20 01/05/20 01/06/20 01/07/20 11:59 11:59 11:59 11:59 Intake Total 481 2473 Output Total 550 1100 Balance -69 1373 Weight 123 kg Lab Results: Lab Results-Last 24 Hours 01/07/20 01/07/20 Range/Units 05:05 05:05 WBC 4.3 (4.0-10.5) K/mm3 RBC 3.26 L (4.1-5.4) M/mm3 Hgb 10.5 L (12.0-16.0) gm/dl Hct 34.6 L (35-47) % MCV 106.1 H (78-100) fl MCH 32.2 H (26-32) pg MCHC 30.3 L (32-36) g/dl RDW 14.4 H (11.5-14.0) % Plt Count 115 L (150-450) K/mm3 MPV 10.5 (7.5-11.0) fl Sodium 140 (137-145) mmol/L Potassium 4.3 (3.5-5.1) mmol/L Chloride 108 H (98-107) mmol/L Carbon Dioxide 24 (22-30) mmol/L Anion Gap 12.0 (5-15) MEQ/L BUN 27 H (7-17) mg/dL Creatinine 1.28 H (0.52-1.04) mg/dL Estimated GFR 43.6 ML/MIN Glucose 92 (74-106) mg/dL Calcium 8.5 (8.4-10.2) mg/dL Total Bilirubin 0.70 (0.2-1.3) mg/dL AST 27 (14-36) U/L ALT 12 (0-35) U/L Alkaline Phosphatase 74 (38-126) U/L Serum Total Protein 5.9 L (6.3-8.2) g/dL Albumin 3.2 L (3.5-5.0) g/dL Radiology Exams: Radiology Procedures Category Date Time Status ABDOMEN AND PELVIS W/0 CONTRAS [CT] Stat Exams 01/05/20 22:12 Completed Multi-Disciplinary Progress Notes: Multi-Disciplinary Progress Notes 01/06/20 12:53 Case Management Note by Kalyani Paz Spoke with pt regarding discharge needs. she lives with her and has family support from her children. she is able to make her dr appointments and doesn't anticipate any needs at this time. will continue to monitor. Initialized on 01/06/20 12:53 - END OF NOTE Assessment/Plan (1) Small bowel obstruction Current Visit: Yes Status: Acute Assessment & Plan: Improved, but still not feeling well. Continue bland diet. Continue IV levaquin and flagyl, day #3. Code(s): K56.609 - UNSP INTESTNL OBST, UNSP TO PARTIAL VERSUS COMPLETE OBST (2) UTI (urinary tract infection) Current Visit: Yes Status: Acute Qualifiers: Urinary tract infection type: acute cystitis Hematuria presence: without hematuria Qualified Code(s): N30.00 - Acute cystitis without hematuria Assessment & Plan: Would like pt to stay until culture results are in. If she is feeling much better this evening and results are in, she may be able to d/c to home. However I anticipate she will be discharged tomorrow, most likely. Code(s): N39.0 - URINARY TRACT INFECTION, SITE NOT SPECIFIED (3) Essential hypertension Current Visit: No Status: Chronic Assessment & Plan: stable Code(s): I10 - ESSENTIAL (PRIMARY) HYPERTENSION (4) Chronic renal disease Current Visit: Yes Status: Chronic Qualifiers: Chronic kidney disease stage: stage 3 (moderate) Qualified Code(s): N18.3 - Chronic kidney disease, stage 3 (moderate) Code(s): N18.9 - CHRONIC KIDNEY DISEASE, UNSPECIFIED (5) Morbid obesity Current Visit: No Status: Chronic Code(s): E66.01 - MORBID (SEVERE) OBESITY DUE TO EXCESS CALORIES (6) Muscular deconditioning Current Visit: Yes Status: Acute Assessment & Plan: PT has been consulted. Code(s): R29.898 - OTH SYMPTOMS AND SIGNS INVOLVING THE MUSCULOSKELETAL SYSTEM
[2020-01-07] MEDS: ZYLOPRIM 300 MG PO SCH (09:27)
[2020-01-07] MEDS: Coreg 3.125 MG PO SCH (09:27)
[2020-01-07] MEDS: ZOCOR 20MG PO SCH (09:27)
[2020-01-07] MEDS: Acidophilus TABLET PO SCH (09:27)
--- NOTE | 2020-01-07 10:38 | PCM.DS ---
Discharge Summary Date of Admission: 01/06/20 00:07 Admitting Physician: BRIGETTE HERNANDEZ Primary Care Provider: BRIGETTE HERNANDEZ Allergies Allergies clams Allergy (Severe, Verified 01/06/20 03:58) breathing difficulty codeine [Codeine] Allergy (Intermediate, Verified 01/06/20 03:58) Hives penicillin G Allergy (Intermediate, Verified 01/06/20 03:58) [facility] Summary - Hospital Course Hospital Course: is a 74 year old female pt of mine from [facility] with breast cancer ( recently diagnosed), hx diverticulitis (with hx sigmoid resection), CHF, HTN, neuropathy, and chronic renal failure who was admitted through ER with small bowel obstruction and UTI. She was started on IV levaquin and flagyl. Her WBC were nl. BUN/Cr were elevated; currently her renal function is a little improved over her baseline. Yesterday she had a large liquid BM. Her abd pain improved drastically the first night after admission. Her urine culture came back negative today, so pt will be discharged to home on no antibiotics. PT cleared pt to be safe at home. - Vitals & Intake/Output Vital Signs: Vital Signs Temperature 98.2 F 01/07/20 08:00 Pulse Rate 53 L 01/07/20 08:00 Respiratory Rate 20 01/07/20 08:00 Blood Pressure 126/58 01/07/20 08:00 O2 Sat by Pulse Oximetry 93 L 01/07/20 08:00 Intake & Output: Intake & Output 01/04/20 01/05/20 01/06/20 01/07/20 11:59 11:59 11:59 11:59 Intake Total 481 2473 Output Total 550 1100 Balance -69 1373 Weight 123 kg - Lab Result Diagrams: 01/07/20 05:05 01/07/20 05:05 Lab Results-Last 24 Hrs: Lab Results-Last 24 Hours 01/07/20 01/07/20 Range/Units 05:05 05:05 WBC 4.3 (4.0-10.5) K/mm3 RBC 3.26 L (4.1-5.4) M/mm3 Hgb 10.5 L (12.0-16.0) gm/dl Hct 34.6 L (35-47) % MCV 106.1 H (78-100) fl MCH 32.2 H (26-32) pg MCHC 30.3 L (32-36) g/dl RDW 14.4 H (11.5-14.0) % Plt Count 115 L (150-450) K/mm3 MPV 10.5 (7.5-11.0) fl Sodium 140 (137-145) mmol/L Potassium 4.3 (3.5-5.1) mmol/L Chloride 108 H (98-107) mmol/L Carbon Dioxide 24 (22-30) mmol/L Anion Gap 12.0 (5-15) MEQ/L BUN 27 H (7-17) mg/dL Creatinine 1.28 H (0.52-1.04) mg/dL Estimated GFR 43.6 ML/MIN Glucose 92 (74-106) mg/dL Calcium 8.5 (8.4-10.2) mg/dL Total Bilirubin 0.70 (0.2-1.3) mg/dL AST 27 (14-36) U/L ALT 12 (0-35) U/L Alkaline Phosphatase 74 (38-126) U/L Serum Total Protein 5.9 L (6.3-8.2) g/dL Albumin 3.2 L (3.5-5.0) g/dL Micro Results-Entire Visit: Microbiology 01/05/20 22:30 Urine Culture - Final Clean Catch Midstream <10K NORMAL SKIN ROBERT PROBABLE SKIN CONTAMINANT - Radiology Exams Ordered Rad Exams-Entire Visit: Radiology Procedures Category Date Time Status ABDOMEN AND PELVIS W/0 CONTRAS [CT] Stat Exams 01/05/20 22:12 Completed - Procedures and Test Procedures and Tests throughout Hospitalization: Therapy Orders & Screens 01/07/20 08:22 PT Eval & Treat (MD Order) ROUTINE Reason for Eval:: Pt in with UTI, ensure pt safe to d/c home when medically cleared. Diagnosis: SBO Discharge Exam General Appearance: no apparent distress, alert, obese Neurologic Exam: oriented x 3, cooperative Eye Exam: eyes nml inspection Ears, Nose, Throat Exam: moist mucous membranes Neck Exam: normal inspection Respiratory Exam: normal breath sounds, lungs clear, No crackles/rales, No rhonchi, No wheezing Cardiovascular Exam: regular rate/rhythm, normal heart sounds, No irregular Gastrointestinal/Abdomen Exam: soft, normal bowel sounds, tenderness (in epigastrum), No distention, No mass, No guarding, No rebound Back Exam: normal inspection, No rash Skin Exam: normal color, warm, dry, No rash Final Diagnosis/Problem List - Final Discharge Diagnosis/Problem (1) Small bowel obstruction Current Visit: Yes Status: Acute Assessment & Plan: Appears to be resolved, has tolerated bland diet since yesterday and had a BM. Not sending pt on antibiotics. If there are any issues, her daughter can get ahold of me any time. Code(s): K56.609 - UNSP INTESTNL OBST, UNSP TO PARTIAL VERSUS COMPLETE OBST (2) UTI (urinary tract infection) Current Visit: Yes Status: Ruled-out Assessment & Plan: Culture was neg. Code(s): N39.0 - URINARY TRACT INFECTION, SITE NOT SPECIFIED (3) Essential hypertension Current Visit: No Status: Chronic Code(s): I10 - ESSENTIAL (PRIMARY) HYPERTENSION (4) Chronic renal disease Current Visit: Yes Status: Chronic Assessment & Plan: Back to baseline or better. Code(s): N18.9 - CHRONIC KIDNEY DISEASE, UNSPECIFIED (5) Morbid obesity Current Visit: No Status: Chronic Code(s): E66.01 - MORBID (SEVERE) OBESITY DUE TO EXCESS CALORIES (6) Muscular deconditioning Current Visit: Yes Status: Ruled-out Code(s): R29.898 - [facility] SYMPTOMS AND SIGNS INVOLVING THE MUSCULOSKELETAL SYSTEM - Discharge Disposition: Home, Self-Care Condition: Good Prescriptions: New Lactobacillus Acidophilus [Acidophilus TABLET] 1 tab PO TID tablet Continue Allopurinol 300 mg [Zyloprim 300 mg] 300 mg PO DAILY Carvedilol 3.125 mg [Coreg 3.125 MG] 3.125 mg PO BID Torsemide 20 mg [Demadex 20 mg] 20 mg PO DAILY Ergocalciferol (Vitamin D2) [Vitamin D] 50,000 unit PO UD Magnesium Oxide 400 mg [Mag-Ox 400] 400 mg PO DAILY Spironolactone 25 mg [Aldactone 25 MG] 25 mg PO DAILY Zinc 50 mg PO DAILY Simvastatin 20 mg PO DAILY Ascorbic Acid 500 mg [Vitamin C 500 MG] 1,000 mg PO DAILY Follow up with: BRIGETTE HERNANDEZ [Primary Care Provider] - 1 Week
[2020-01-07 11:27] VITALS: BP 147/66; PULSE 52; O2SAT 95
== END 2020-01-07 12:15 | disposition home or self-care (01) ==
LOC: ED 21:48 → MED SURG 01-06 00:07
PROVIDERS: ADMIT Family Medicine; ATTEND Family Medicine
DX: K56.609 Unspecified intestinal obstruction, unspecified as to partial versus complete obstruction (principal); N39.0 Urinary tract infection, site not specified; I12.9 Hypertensive chronic kidney disease with stage 1 through stage 4 chronic kidney disease, or unspecified chronic kidney disease; C50.919 Malignant neoplasm of unspecified site of unspecified female breast; N18.9 Chronic kidney disease, unspecified; E66.01 Morbid (severe) obesity due to excess calories; R29.898 Other symptoms and signs involving the musculoskeletal system
CPT/HCPCS: 36000; 36415; 74176; 80048; 80053; 81001; 82150; 83605; 83690; 84134; 85025; 85027; 87086; 96360; 96365; 96372; 96374; 96375; 99285; G0378; J1170; J1956; J2405; J2550; A9270-GY

== ENCOUNTER 2020-02-07 05:48 | Day surgery (SDC) | payer MEDICARE, OTHER ==
[2020-02-07] MEDS ORDERED: Lactated Ringers 1,000 ML IV SCH (06:00)
[2020-02-07 06:37] LABS: ANION GAP 15.5 MEQ/L (5-15); Calcium 9.3 mg/dL (8.4-10.2); Creatinine 1 1.34 mg/dL (0.52-1.04); Potassium 4.6 mmol/L (3.5-5.1)
[2020-02-07] MEDS ORDERED: KEFZOL 1 GM** 3 G in Sodium Chloride 0.9% 50 ML 50 ML IV ONE (07:00)
[2020-02-07] MEDS ORDERED: Sensorcaine 0.25% 10 ML ONE ×2 (07:47→11:34)
[2020-02-07] MEDS ORDERED: Lactated Ringers 1,000 ML IV ONE (07:47)
--- NOTE | 2020-02-07 07:59 | HP ---
DATE OF SURGERY: 02/07/2020 HISTORY OF PRESENT ILLNESS: The patient is a 75 year-old with recent diagnosis of right breast cancer following biopsy. She was seen in the office and discussed options of breast conservative therapy with [place] lymph node versus mastectomy [place] lymph node. She is waiting for her BRCA to come back. It came back negative. I also felt she would benefit from lumpectomy with prior needle placement, [place] lymph node biopsy as an outpatient. PAST MEDICAL HISTORY: Congestive heart failure, renal insufficiency, right breast cancer, history of uterine cancer. PAST SURGICAL HISTORY: Hernia repair in the past. Cholecystectomy. Appendectomy. Hysterectomy. Sigmoid resection in the past. Diverticular disease. Ovaries removed in the past with hysterectomy. MEDICATIONS: Torsemide, Calcitriol, carvedilol, hydralazine, magnesium oxide, ergocalciferol, Allopurinol for some gout, potassium chloride, Simvastatin for some hyperlipidemia, Spironolactone, vitamin C, zinc. ALLERGIES: CODEINE. PENICILLIN. SHELLFISH. FAMILY HISTORY: Metastatic lumbar cancer. Heart disease. Skin cancer. SOCIAL HISTORY: Denies smoking and alcohol abuse. REVIEW OF SYSTEMS: Fourteen systems reviewed. No chest pain or palpitations. Pertinent for multiple medical problems as noted above. PHYSICAL EXAMINATION: HEENT: Sclerae nonicteric. NECK: No JVD. CHEST: Equal excursion, nonlabored breathing. CVS: Regular rhythm. ABDOMEN: Soft. EXTREMITIES: No significant edema or cyanosis currently. NEURO: Alert, oriented, moving extremities symmetrically. No gross motor deficits noted. BREAST: She has an indurated area right breast. She had recent core biopsy. IMPRESSION: Suspicious mass 10:00 o'clock position in the breast, ultrasound recommended. Consider this positive for core biopsy for breast cancer on mammogram and ultrasound. Will proceed with outpatient right breast lumpectomy with prior needle placement, [place] lymph node biopsy possible at later time. General risk of bleeding or infection, risk of hematoma or seroma formation, risk of inflammatory changes, risk of infection, risk of sensory or motor nerve irritation, risk of scar formation, risk of numbness of the arm, weakness of the shoulder or scapula or upper extremity, risk of aches, pains, burning or numbness possibly care home or chronic in nature, risk of involved margins possibly requiring other procedures or wider excision, risk of anesthesia, deep venous thrombosis, pulmonary embolism or pneumonia. Risk of lymphedema but not limited to. She understands all the above but not limited to, will proceed with right breast lumpectomy with prior needle placement with [place] lymph node biopsy as an outpatient.
--- NOTE | 2020-02-07 08:55 | XRAY ---
Indication: Needle wire localization for biopsy proven 10:00 right cancer. Informed consent obtained. Right breast was compressed in the CC plane using a alphanumeric grid paddle. Skin was cleansed with Betadine swabs. A 20-gauge Ghiatas needle was then percutaneously. Orthogonal right mammogram was obtained confirming overall good needle tip placement. Ultimately a hooked dion wire was then inserted into the needle with the outer needle removed. Repeat orthogonal digital mammograms obtained confirms overall good needle placement. Wire were secured and overlying bandage material applied. Patient was then taken to surgery. Impression: Technically successful needle wire localization 10:00 mammotome clip/biopsy site. No immediate complications.
--- NOTE | 2020-02-07 10:18 | XRAY ---
Indication: Right breast cancer. Patient received 4 right periareolar subcutaneous injections totaling 919 Ci of filtered technetium 99 sulfur colloid. Delayed anterior and lateral planar images obtained. Solitary focus of increased radiopharmaceutical activity seen in the right axillary tail and a second focus seen in the right axilla. Skin was demarcated for the surgeon. Patient was taken to surgery. Impression: 2 radiopharmaceutical active sentinel nodes identified.
[2020-02-07] MEDS ORDERED: Xylocaine-Mpf 2% 5 Ml Vial ONE (10:44)
[2020-02-07] MEDS ORDERED: DIPRIVAN 200 MG/20 ML IV ONE (10:44)
[2020-02-07] MEDS ORDERED: SUBLIMAZE 250 MCG/5 ML ONE (10:44)
[2020-02-07] MEDS ORDERED: Versed 2 MG/2 ML Injection ONE (10:44)
[2020-02-07] MEDS ORDERED: Ephedrine Sulfate 50 MG/ML ONE (11:06)
--- NOTE | 2020-02-07 11:36 | XRAY ---
Indication: Surgical specimen following needle wire localization. A single specimen radiograph demonstrates mammotome clip/biopsy site and the abnormal breast tissue with intact dion wire. Findings were reported to the surgeon.
[2020-02-07] MEDS ORDERED: SUBLIMAZE 100 MCG/2 ML ONE ×2 (11:46→12:39)
[2020-02-07] MEDS ORDERED: Zofran 4 MG/2 ML VIAL ONE (13:11)
[2020-02-07] MEDS ORDERED: Zofran 4 MG/2 ML VIAL IV STA (13:15)
[2020-02-07 14:51] VITALS: BP 159/68; PULSE 18; O2SAT 95
--- NOTE | 2020-02-07 15:06 | OP ---
SURGERY DATE/TIME: 02/07/2020 1045 PREOPERATIVE DIAGNOSIS: Right breast cancer. POSTOPERATIVE DIAGNOSIS: Right breast cancer. PROCEDURES: 1) Right breast lumpectomy with prior needle placement. 2) Lowman lymph node biopsy radiolymphoscintigraphy right axilla (three separate axillary Lowman lymph nodes). SURGEON: Dr. Casey Salter. ANESTHESIA: General ESTIMATED BLOOD LOSS: Minimal. INDICATIONS: As noted above. Risks and benefits explained in detail and not limited to and consent obtained. DESCRIPTION OF PROCEDURE AND FINDINGS: The patient is taken to the operating room. She had previously been to radiology and had prior needle placement of the area in question. It had radiolymphoscintigraphy injected. She was taken to operating room. General anesthesia induced. Prepped and draped in sterile fashion. After official time out and no disagreement with planned procedure, spindle shaped segment of skin overlying the area in question of lumpectomy site. Dissection carried down and deep to the wire and circumferentially around it. It was passed off for pathology. Given her obesity, she had some large subcutaneous veins. These are cauterized and ligated as necessary. The specimen is passed off, marked with a single tie at 3:00, double tie at 12:00. Specimen mammography confirmed the specimen was good with the wire in the region. Otherwise given her obesity and the drooping of her breast, was able to reach the Lowman node through the breast wound itself. Dissection is carried down axillary fat pad. It took some time given very small lymph nodes and her obesity. Using the nuclear probe the first node was carefully dissected out more inferiorly on the chest area. This region had high uptake of 90 on the continuous node count. Another adjacent node gave an uptake of 140. It was more cephalad towards the axilla this is the second hot Lowman lymph node. A third one more up towards higher up in the axilla gave a read of 177. There did not appear to be any other isolated Lowman lymph nodes. These nodes were then dissected out using LigaSure device at the onset with a combination of clipping the small lymphatics and the vessels into and out of the nodes was accomplished. Good hemostasis noted. The three Lowman nodes had been sent. JOYA drain placed through inferior stab wound into the axillary space. Axillary fascia was then reapproximated with 3-0 Vicryl isolating the axillary space away from the breast wound and breast parenchyma was then reapproximated in interrupted fashion with 3-0 Vicryl. Superficial subcu closed with 3-0 Vicryl. Skin closed with 4-0 Vicryl. Steri-Strips and sterile dressing applied. 0.25% Marcaine local injected along the area. The patient tolerated the procedure well. There were no immediate complications. JOYA drain secured with PDS suture. Steri-Strips and sterile dressing and a breast binder. There was no family available to discuss the findings with out in the waiting area.
== END 2020-02-07 14:45 | disposition home or self-care (01) ==
LOC: SDC 05:48
PROVIDERS: ATTEND Surgery
DX: C50.911 Malignant neoplasm of unspecified site of right female breast (principal); Z85.42 Personal history of malignant neoplasm of other parts of uterus; Z79.899 Other long term (current) drug therapy
CPT/HCPCS: 19281; 19301; 36415; 38525; 76098; 77065; 78195; 80048; A9541; 99100; J0690; J2250; J2405; J2704; J3010

== ENCOUNTER 2021-07-01 12:35 | Emergency (ER) | payer MEDICARE, OTHER ==
[2021-07-01 12:51] VITALS: BP 169/88; PULSE 55
--- NOTE | 2021-07-01 12:57 | ERPHSYRPT ---
- History of Present Illness Time Seen by Provider: 07/01/21 12:47 Source: patient Exam Limitations: no limitations Physician History: 76 years old female presented in the ER with a chief complaint of hot broth burn with spilled on her feet accidentally while bringing out from oven this morning. Complaining of dull to sharp burning pain more on the left distal foot and some on the right big toe. She reported cold water for a couple of hours and apply Silvadene. No blistering. Feeling better now. Up-to-date with tetanus. Timing/Duration: hour(s) (4), constant, sudden, improved Quality: burning, painful Severity: moderate Location: feet Possible Causes: other Modifying Factors: Improves With: other Associated Symptoms: rash Allergies/Adverse Reactions: clams Allergy (Severe, Verified 02/07/20 06:13) breathing difficulty codeine [Codeine] Allergy (Intermediate, Verified 02/07/20 06:13) Hives penicillin G Allergy (Intermediate, Verified 02/07/20 06:13) Hives Home Medications: Allopurinol 300 mg [Zyloprim 300 mg] 300 mg PO DAILY 10/07/13 [History] Carvedilol 3.125 mg [Coreg 3.125 MG] 3.125 mg PO BID 10/07/13 [History] Ergocalciferol (Vitamin D2) [Vitamin D] 50,000 unit PO UD 01/19/18 [History] Magnesium Oxide 400 mg [Mag-Ox 400] 400 mg PO DAILY 01/19/18 [History] Spironolactone 25 mg [Aldactone 25 MG] 25 mg PO DAILY 01/19/18 [History] Torsemide 20 mg [Demadex 20 mg] 20 mg PO DAILY 01/19/18 [History] Ascorbic Acid 500 mg [Vitamin C 500 MG] 1,000 mg PO DAILY 01/05/20 [History] Simvastatin 20 mg PO DAILY 01/05/20 [History] Zinc 50 mg PO DAILY 01/05/20 [History] Lactobacillus Acidophilus [Acidophilus TABLET] 1 tab PO TID 01/31/20 [History] HydrALAzine HCL 25 MG TAB [Apresoline 25 MG TABLET] 25 mg PO DAILY 02/07/20 [History] Hydralazine HCl 10 mg PO HS 02/07/20 [History] Hx Tetanus, Diphtheria Vaccination/Date Given: No Hx Influenza Vaccination/Date Given: Yes Hx Pneumococcal Vaccination/Date Given: No - Review of Systems Constitutional: No Symptoms Eyes: No Symptoms Respiratory: Dyspnea Cardiac: No Symptoms Abdominal/Gastrointestinal: No Symptoms Genitourinary Symptoms: No Symptoms Musculoskeletal: No Symptoms Skin: Induration, Rash, Skin Lesions Neurological: No Symptoms Psychological: No Symptoms Endocrine: No Symptoms - Past Medical History Pertinent Past Medical History: Yes Neurological History: No Pertinent History ENT History: Cataracts Cardiac History: Arrhythmia, Congestive Heart Failure, Hypertension Respiratory History: No Pertinent History Endocrine Medical History: Other Musculoskeletal History: No Pertinent History GI Medical History: Diverticulitis, Hernia, Other History: Renal Disease Psycho-Social History: No Pertinent History Female Reproductive Disorders: Breast Cancer, Endometriosis Other Medical History: colon resection in 2006 - parts of colon . hyperparathyroidism. hx kidney failure stage 3. Patient reported this still accurate - Past Surgical History Past Surgical History: Yes Neuro Surgical History: No Pertinent History Cardiac: Cardiac Catheterization Respiratory: No Pertinent History Gastrointestinal: Appendectomy, Cholecystectomy, Colon Resection, Hernia Repair Genitourinary: No Pertinent History Musculoskeletal: No Pertinent History Female Surgical History: Hysterectomy Other Surgical History: hernia repair x3, perineal surgery - Social History Smoking Status: Never smoker Exposure to second hand smoke: No Drug Use: none Patient Lives Alone: No - Physical Exam General Appearance: no apparent distress Neck Exam: normal inspection, full range of motion Respiratory Exam: normal breath sounds, lungs clear Cardiovascular Exam: regular rate/rhythm, normal heart sounds Extremity Exam: inflammation, other (Mild erythema left distal foot/toes and some erythema right big toe with no blistering. Mild increased temperature. Minimal tenderness. No skin breaks.) Neurologic Exam: alert, oriented x 3, cooperative SpO2 Interpretation: normal SpO2: 95 O2 Delivery: Room Air - Progress Progress: unchanged Progress Note: 07/01/21 13:00 Patient has superficial wiggins. We will continue with Silvadene. Commended Tylenol as needed. Outpatient follow-up. Counseled pt/family regarding: diagnosis, need for follow-up - Departure Departure Disposition: Home Clinical Impression: Burn erythema of foot Qualifiers: Encounter type: initial encounter Laterality: unspecified laterality Qualified Code(s): T25.129A - Burn of first degree of unspecified foot, initial encounter Condition: Stable Critical Care Time: No Referrals: BRIGETTE ALAN [Primary Care Provider] - (1-2 days for reevaluation) Instructions: Skin Wiggins Additional Instructions: Take Tylenol as needed for pain. Keep your feet elevated. Apply Silvadene. Follow-up with primary care for reevaluation in 1 to 2 days. Return to ER for increasing pain swelling redness, fever chills etc. Prescriptions: Silver Sulfadiazine 50 gm [Silvadene 50 gm] 50 gm TP BID 7 Days #1 tu
[2021-07-01 13:02] VITALS: O2SAT 95
== END 2021-07-01 13:13 | disposition home or self-care (01) ==
LOC: ED 12:35
DX: T25.122A Burn of first degree of left foot, initial encounter (principal); T25.121A Burn of first degree of right foot, initial encounter; X12.XXXA Contact with other hot fluids, initial encounter; Y93.G3 Activity, cooking and baking
CPT/HCPCS: 99283